=== PATIENT | female | born 1945 | race Caucasian/White ===

== ENCOUNTER 2021-05-21 21:55 | Observation (INO) | payer MEDICARE, SELFPAY ==
[2021-05-21 23:18] VITALS: BMI 31.0
[2021-05-21] MEDS ORDERED: Ondansetron PF 4 MG/2 ML Vial IVP PRN (23:41)
[2021-05-21] MEDS ORDERED: Acetaminophen 500 MG TAB PO PRN (23:41)
[2021-05-21] MEDS ORDERED: hydrALAZINE 20 MG/ML VIAL SLOW IVP PRN (23:41)
[2021-05-21] MEDS ORDERED: Ondansetron ODT 4 MG TAB PO PRN (23:41)
[2021-05-22 04:36] LABS: Bacteria/HPF None Seen HPF (None Seen); Bilirubin Negative (Negative); Blood, Urine Negative (Negative); Clarity Clear (Clear); Glucose, Urine (Dipstick) Normal (Negative); Ketone, Urine Negative (Negative); Leukocyte Negative Leu/uL (Negative); Nitrite Negative (Negative); Protein, Urine (Dipstick) Negative (Neg-Trace); RBC/HPF 0-3 HPF (0-3); Squamous Epithelial 0-3 HPF (0-3); Urobilinogen Normal mg/dL (Less than 2); WBC/HPF 0-3 HPF (0-3); pH, Urine 5.5 (5.0-9.0)
[2021-05-22 04:59] LABS: Urine Culture Reflex No No
[2021-05-22 05:00] LABS: #Eosinphils 0.1 thou/uL (0.0-0.7); #Lymphocytes 0.8 thou/uL (1.20-3.40); #Monocytes 0.5 thou/uL (0.11-0.59); #Neutrophils 4.9 thou/uL (1.40-6.50); %Eosinophils 1.2 % (0.0-10.0); %Lymphocytes 12.7 % (21.0-51.0); %Monocytes 8.1 % (0.0-10.0); Hemoglobin 12.6 g/dL (12.0-16.0); Mean Corpuscular HGB CONC 33.9 g/dL (32.0-36.0); Mean Corpuscular Volume 88.7 fL (78.0-98.0); Platelet Count 185 thou/uL (130-400); RBC Distribution Width 12.4 % (11.5-14.5); White Blood Cell (WBC) Count 6.3 thou/uL (4.8-10.8)
[2021-05-22 05:16] LABS: Anion Gap 14 mmol/L (10-20); BUN (Urea Nitrogen) 16 mg/dL (9.8-20.1); Calc. Creatinine Clearance 68 mL/min (70-130); Calcium 9.2 mg/dL (7.8-10.44); Carbon Dioxide 24 mmol/L (23-31); Chloride 105 mmol/L (98-107); Glucose 95 mg/dL (83-110); Magnesium 1.6 mg/dL (1.6-2.6); Potassium 3.6 mmol/L (3.5-5.1); Sodium 139 mmol/L (136-145)
[2021-05-22] MEDS: CeleCOXIB 100 MG CAP PO SCH (08:44)
[2021-05-22] MEDS: Hydrochlorothiazide 25 MG TAB PO SCH (08:44)
[2021-05-22] MEDS: Atorvastatin Calcium 40 MG TAB PO SCH ×2 (08:45→12:06)
[2021-05-22] MEDS: Famotidine 20 MG TAB PO SCH (08:45)
[2021-05-22] MEDS ORDERED: Communication Order-Pharmacy FS SCH (17:15)
[2021-05-22] MEDS ORDERED: Atorvastatin Calcium 40 MG TAB PO SCH (21:00)
[2021-05-23] MEDS ORDERED: Sodium Chloride 0.9% 500 ML IV SCH ×2 (00:01→09:45)
[2021-05-23] MEDS ORDERED: Lidocaine 1% (PF) 30 ML VIAL ONE (08:22)
[2021-05-23] MEDS ORDERED: Midazolam HCl 2 mg/2 ml Vial ONE (08:57)
[2021-05-23] MEDS ORDERED: Fentanyl 100 MCG/2 ML VIAL ONE (08:58)
[2021-05-23] MEDS ORDERED: Iopamidol 370 76% 100 ML VIAL ONE (09:14)
[2021-05-23] MEDS ORDERED: Sodium Chloride 0.9% 200 ML IV PRN (09:31)
[2021-05-23] MEDS: CeleCOXIB 100 MG CAP PO SCH (14:01)
[2021-05-23] MEDS: Hydrochlorothiazide 25 MG TAB PO SCH (14:02)
[2021-05-23] MEDS: Famotidine 20 MG TAB PO SCH (14:02)
[2021-05-23 15:53] VITALS: BP 128/62; TEMP 98.2
[2021-05-23] MEDS ORDERED: hydrALAZINE 10 MG TAB PO PRN (17:06)
[2021-05-24] MEDS ORDERED: Aspirin 81 mg Enteric Coated Tablet PO SCH (09:00)
== END 2021-05-23 19:03 | disposition home or self-care (01) ==
LOC: 2SE 21:55
PROVIDERS: ADMIT Family Medicine; ATTEND Internal Medicine
PROC: 4A023N7 Measurement of Cardiac Sampling and Pressure, Left Heart, Percutaneous Approach (ICD-10-PCS; principal; 2021-05-23)
PROC: B2111ZZ Fluoroscopy of Multiple Coronary Arteries using Low Osmolar Contrast (ICD-10-PCS; 2021-05-23)
PROC: 0JH632Z Insertion of Monitoring Device into Chest Subcutaneous Tissue and Fascia, Percutaneous Approach (ICD-10-PCS; 2021-05-23)
DX: R55 Syncope and collapse (principal); I25.10 Atherosclerotic heart disease of native coronary artery without angina pectoris; I12.9 Hypertensive chronic kidney disease with stage 1 through stage 4 chronic kidney disease, or unspecified chronic kidney disease; N18.30 Chronic kidney disease, stage 3 unspecified; K21.9 Gastro-esophageal reflux disease without esophagitis; E78.5 Hyperlipidemia, unspecified; R63.4 Abnormal weight loss; Z68.31 Body mass index [BMI] 31.0-31.9, adult; Z79.899 Other long term (current) drug therapy; Z88.1 Allergy status to other antibiotic agents; Z88.5 Allergy status to narcotic agent
CPT/HCPCS: 33285; 80048; 81001; 83735; 84443; 85025; 93306; 93458; 93880; 97139 ×3; C1764; 36415; 99152; 99153; G0378; J2001; J2250; J3010; Q9967

== ENCOUNTER 2021-06-29 16:31 | Emergency (ER) | payer MEDICARE | END 2021-06-29 18:25 | disposition home or self-care (01) | LOC: ERS 16:31 | DX: T82.847A Pain due to cardiac prosthetic devices, implants and grafts, initial encounter (principal); I10 Essential (primary) hypertension; Z79.899 Other long term (current) drug therapy | CPT/HCPCS: 71045; 93005 ==

== ENCOUNTER 2022-10-09 16:52 | Emergency (ER) | payer MEDICARE ==
[2022-10-09 19:18] LABS: #Lymphocytes 0.9 thou/uL (1.20-3.40); #Monocytes 0.1 thou/uL (0.11-0.59); #Neutrophils 3.5 thou/uL (1.40-6.50); %Basophils 0.2 % (0.0-1.0); %Eosinophils 0.3 % (0.0-10.0); %Lymphocytes 20.3 % (21.0-51.0); %Monocytes 1.5 % (0.0-10.0); %Neutrophils 77.8 % (42.0-75.0); Hemoglobin 12.3 g/dL (12.0-16.0); Mean Corpuscular HGB CONC 34.4 g/dL (32.0-36.0); Mean Corpuscular Hemoglobin 31.4 pg (27.0-31.0); Mean Corpuscular Volume 91.4 fl (78.0-98.0); Mean Platelet Volume 6.7 fL (7.4-10.4); Platelet Count 233 10x3/uL (130-400); RBC Distribution Width 12.4 % (11.5-14.5); Red Blood Cell (RBC) Count 3.91 mill/uL (4.20-5.40); White Blood Cell (WBC) Count 4.5 10x3/uL (4.8-10.8)
[2022-10-09 19:22] LABS: Bacteria/HPF None Seen HPF (None Seen); Bilirubin Negative (Negative); Blood, Urine Negative (Negative); Clarity Clear (Clear); Glucose, Urine (Dipstick) Normal (Negative); Ketone, Urine Negative (Negative); Leukocyte 25 Leu/uL (Negative); Nitrite Negative (Negative); Protein, Urine (Dipstick) Negative (Neg-Trace); RBC/HPF 0-3 HPF (0-3); Squamous Epithelial 0-3 HPF (0-3); Urobilinogen 6 mg/dL (Less than 2); WBC/HPF 0-3 HPF (0-3); pH, Urine 6.5 (5.0-9.0)
[2022-10-09 19:34] LABS: ALT (SGPT) 191 U/L (8-55); AST (SGOT) 350 U/L (5-34); Alkaline Phosphatase 290 U/L (40-110); Anion Gap 16 mmol/L (10-20); BUN (Urea Nitrogen) 25 mg/dL (9.8-20.1); Bilirubin, Total 1.2 mg/dL (0.2-1.2); Calc. Creatinine Clearance 0 mL/min (70-130); Calcium 8.8 mg/dL (7.8-10.44); Carbon Dioxide 23 mmol/L (23-31); Chloride 106 mmol/L (98-107); Estimated GFR 50; Globulin 2.6 g/dL (2.4-3.5); Glucose 96 mg/dL (83-110); Potassium 3.8 mmol/L (3.5-5.1); Protein, Total 6.6 g/dL (5.8-8.1); Sodium 141 mmol/L (136-145)
== END 2022-10-09 20:10 | disposition home or self-care (01) ==
LOC: ERS 16:52
DX: R55 Syncope and collapse (principal); E78.00 Pure hypercholesterolemia, unspecified; K21.9 Gastro-esophageal reflux disease without esophagitis; I10 Essential (primary) hypertension; Z79.82 Long term (current) use of aspirin; Z79.899 Other long term (current) drug therapy
CPT/HCPCS: 36415; 51701; 70450; 80053; 81003; 81015; 83880; 84484; 85025; 93005

== ENCOUNTER 2023-07-10 12:18 | Observation (INO) | payer MEDICARE ==
[2023-07-10] MEDS ORDERED: Ondansetron PF 4 MG/2 ML Vial IVP PRN (21:21)
[2023-07-10] MEDS ORDERED: Ondansetron ODT 4 MG TAB PO PRN (21:21)
[2023-07-10] MEDS ORDERED: Calcium Carbonate 500 MG ChewTAB PO PRN (21:21)
[2023-07-10] MEDS ORDERED: Senokot S 8.6-50 MG TAB PO PRN (21:21)
[2023-07-10] MEDS ORDERED: Acetaminophen 325 MG TAB PO PRN (21:21)
[2023-07-10 23:31] VITALS: BMI 28.5
[2023-07-11 06:24] LABS: #Eosinphils 0.2 thou/uL (0.0-0.7); #Monocytes 0.5 thou/uL (0.11-0.59); #Neutrophils 2.9 thou/uL (1.40-6.50); %Basophils 0.9 % (0.0-1.0); %Eosinophils 4.7 % (0.0-10.0); %Lymphocytes 19.9 % (21.0-51.0); %Monocytes 10.5 % (0.0-10.0); %Neutrophils 62.7 % (42.0-75.0); Hematocrit 31.9 % (36.0-47.0); Hemoglobin 10.3 g/dL (12.0-16.0); Mean Corpuscular HGB CONC 32.3 g/dL (32.0-36.0); Mean Corpuscular Hemoglobin 28.4 pg (27.0-31.0); Mean Corpuscular Volume 87.9 fl (78.0-98.0); Mean Platelet Volume 9.1 fL (7.4-10.4); Platelet Count 387 10x3/uL (130-400); RBC Distribution Width 13.8 % (11.5-14.5); Red Blood Cell (RBC) Count 3.63 mill/uL (4.20-5.40); White Blood Cell (WBC) Count 4.7 10x3/uL (4.8-10.8)
[2023-07-11 06:51] LABS: Anion Gap 14 mmol/L (10-20); BUN (Urea Nitrogen) 16 mg/dL (9.8-20.1); Calc. Creatinine Clearance 68 mL/min (70-130); Calcium 9.7 mg/dL (7.8-10.44); Carbon Dioxide 25 mmol/L (23-31); Chloride 107 mmol/L (98-107); Estimated GFR 78; Glucose 91 mg/dL (83-110); Magnesium 1.7 mg/dL (1.6-2.6); Phosphorus 3.5 mg/dL (2.3-4.7); Potassium 3.6 mmol/L (3.5-5.1); Sodium 142 mmol/L (136-145)
[2023-07-11] MEDS ORDERED: Sodium Chloride 0.9% 1,000 ML IV SCH (10:00)
[2023-07-11] MEDS ORDERED: Aspirin 81 mg Enteric Coated Tablet PO SCH (10:00)
[2023-07-11] MEDS ORDERED: Letrozole 2.5 MG TAB PO SCH (10:00)
[2023-07-11] MEDS: Sertraline 100 MG TAB PO SCH (20:42)
[2023-07-11] MEDS: Atorvastatin Calcium 40 MG TAB PO SCH (20:42)
[2023-07-12 04:34] LABS: #Eosinphils 0.2 thou/uL (0.0-0.7); #Monocytes 0.4 thou/uL (0.11-0.59); #Neutrophils 2.8 thou/uL (1.40-6.50); %Basophils 0.7 % (0.0-1.0); %Eosinophils 4.6 % (0.0-10.0); %Lymphocytes 23.4 % (21.0-51.0); %Monocytes 9.5 % (0.0-10.0); %Neutrophils 60.5 % (42.0-75.0); Hematocrit 30.4 % (36.0-47.0); Hemoglobin 9.8 g/dL (12.0-16.0); Mean Corpuscular HGB CONC 32.2 g/dL (32.0-36.0); Mean Corpuscular Hemoglobin 28.1 pg (27.0-31.0); Mean Corpuscular Volume 87.1 fl (78.0-98.0); Mean Platelet Volume 8.7 fL (7.4-10.4); Platelet Count 362 10x3/uL (130-400); RBC Distribution Width 13.8 % (11.5-14.5); Red Blood Cell (RBC) Count 3.49 mill/uL (4.20-5.40); White Blood Cell (WBC) Count 4.6 10x3/uL (4.8-10.8)
[2023-07-12 04:53] LABS: Anion Gap 14 mmol/L (10-20); BUN (Urea Nitrogen) 10 mg/dL (9.8-20.1); Calc. Creatinine Clearance 76 mL/min (70-130); Calcium 8.8 mg/dL (7.8-10.44); Carbon Dioxide 23 mmol/L (23-31); Chloride 108 mmol/L (98-107); Estimated GFR 89; Glucose 100 mg/dL (83-110); Potassium 3.5 mmol/L (3.5-5.1); Sodium 141 mmol/L (136-145)
[2023-07-12] MEDS ORDERED: Aspirin 81 mg Enteric Coated Tablet PO SCH (09:00)
[2023-07-12] MEDS ORDERED: Letrozole 2.5 MG TAB PO SCH (09:00)
[2023-07-12] MEDS ORDERED: Iopamidol-370 76% 500 ML MDV (1 ML CHARGE) ONE (09:26)
[2023-07-12 16:43] VITALS: BP 133/66; TEMP 98.1
[2023-07-12] MEDS: Sertraline 100 MG TAB PO SCH (20:53)
[2023-07-12] MEDS: Atorvastatin Calcium 40 MG TAB PO SCH (20:54)
== END 2023-07-12 22:05 | disposition home or self-care (01) ==
LOC: 2NO 19:39
PROVIDERS: ADMIT Internal Medicine; ATTEND Hospitalist
DX: R55 Syncope and collapse (principal); I10 Essential (primary) hypertension; I08.3 Combined rheumatic disorders of mitral, aortic and tricuspid valves; E78.5 Hyperlipidemia, unspecified; M19.90 Unspecified osteoarthritis, unspecified site; F03.90 Unspecified dementia, unspecified severity, without behavioral disturbance, psychotic disturbance, mood disturbance, and anxiety; C50.911 Malignant neoplasm of unspecified site of right female breast; Z88.6 Allergy status to analgesic agent; Z88.1 Allergy status to other antibiotic agents; Z90.710 Acquired absence of both cervix and uterus; Z79.899 Other long term (current) drug therapy
CPT/HCPCS: 70496; 70498; 80048 ×2; 83735; 84100; 84443; 85025 ×2; 93306; 93880; 97110 ×2; 97530; 97535; G0378 ×3; 36415; J7050; Q9967